=== PATIENT | female | born 1965 | race African-American/Black ===

== ENCOUNTER 2016-06-21 20:51 | Emergency (ER) | payer OTHER ==
[~2016-06-21] VITALS: Ht 167.6 cm; Wt 81.6 kg
[~2016-06-21 20:51] MED LIST: ALBUTEROL SULF8.5 GM INH; AUGMENTIN 875-1 EAC1 ORAL; AZITHROMYCIN250 MG ORAL; BACLOFEN10 MG ORAL; CYCLOBENZAPRINE10 MG ORAL; HYDROCODON-ACE1 EA15 ORAL; IBUPROFEN600 MG ORAL; IBUPROFEN800 MG ORAL; NORCO 5-325 TA1 EACH ORAL; PROMETHAZINE-C118 M1 ORAL; TRAMADOL HCL50 MG ORAL
[2016-06-21] MEDS ORDERED: Dicyclomine HCl 10mg/5ml oral soln ORAL ONE (21:30)
[2016-06-21] MEDS ORDERED: ZOFRAN4 MG ORAL (21:35)
[2016-06-21] MEDS ORDERED: BENTYL10 MG ORAL (21:35)
[2016-06-21 21:37] VITALS: BP 104/67
[2016-06-21 22:45] VITALS: BP 104/67
--- NOTE | 2016-06-22 12:22 | Diagnostic Imaging Report ---
Indication: Dyspnea Comparison: None A single view chest radiograph was obtained. Findings: Cardiomediastinal appearance is within normal limits for age. Pulmonary vascularity is appropriate. The diaphragmatic contour is smooth and costophrenic angles are sharp. No pleural effusions are identified. The bones are unremarkable. Impression: No acute findings
--- NOTE | 2016-06-26 08:13 | Emergency Room Report ---
History of Present Illness General Chief Complaint: Abdominal Pain Source: Patient Present Illness HPI Patient is a 51-year-old female who presented after increased abdominal pain and diarrhea. Patient reported having gradual onset of symptoms. She had prior history of some chronic pain. The patient was noted to have episodes of nausea associated with abdominal cramping. She states that she may been some bad food. Patient is not having any worsening pain with movement. She denied numbness or weakness to her extremities. She had no recent fever. She reported having some watery diarrhea. Allergies: Coded Allergies: No Known Allergies (Unverified , 07/10/14) Patient History Past Medical History: see triage record Reviewed Nursing Documentation: PMH: Agreed, PSxH: Agreed Nursing Documentation-PMH Past Medical History: No Stated History Review of Systems All Other Systems: negative except mentioned in HPI Physical Exam Vital Signs Date Time Temp Pulse Resp B/P Pulse Ox O2 Delivery O2 Flow Rate FiO2 06/21/16 21:12 98.2 65 19 104/67 99 Sp02 EP Interpretation: reviewed, normal General Appearance: normal inspection, well appearing, no apparent distress, alert, GCS 15 Head: atraumatic ENT: normal ENT inspection, hearing grossly normal, normal voice Neck: normal inspection, full range of motion, supple, no bony tend Respiratory: normal inspection, lungs clear, normal breath sounds, no respiratory distress, no retraction, no wheezing Cardiovascular #1: regular rate, rhythm, no edema Gastrointestinal: normal inspection, normal bowel sounds, non tender, soft, no guarding, no hernia Genitourinary: no CVA tenderness Musculoskeletal: normal inspection, back normal, normal range of motion Neurologic: normal inspection, alert, oriented x3, responsive, heat treat worker III-XII nml as tested, speech normal Psychiatric: normal inspection, judgement/insight normal, mood/affect normal Skin: normal inspection, normal color, no rash Medical Decision Making Diagnostic Impression: Primary Impression: Abdominal pain ER Course Patient presented for abdominal pain. Differential diagnoses included ischemic bowel, appendicitis, perforated viscus, abdominal aortic aneurysm, inferior myocardial infarction, viral gastroenteritis Patient's benign exam and does not appear to require any further imaging or laboratory testing at this time The patient was given a GI cocktail and Zofran with improvement.The patient is advised to follow up with primary care doctor in 1-2 days. Patient is advised to return if any worsening condition or if any changes in status that are concerning. Last Vital Signs Date Time Temp Pulse Resp B/P Pulse Ox O2 Delivery O2 Flow Rate FiO2 06/21/16 22:45 98.2 65 19 104/67 99 Status: improved Disposition: HOME, SELF-CARE Condition: Stable Scripts Ondansetron (Zofran) 4 Mg Tablet 4 MG ORAL Q6H Y for Nausea & Vomiting, #30 TAB 0 Refills Prov: Dwayne Coelho 06/21/16 Dicyclomine Hcl* (BENTYL*) 10 Mg Capsule 10 MG ORAL FOUR TIMES A DAY, #20 CAP Prov: Dwayne Coelho 06/21/16 Referrals: [facility] (PCP) Patient Instructions: Abdominal Pain, Adult Dwayne Coelho Jun 26, 2016 08:13
== END 2016-06-21 22:45 | disposition home or self-care (01) ==
LOC: EMR 21:31
DX: R10.9 Unspecified abdominal pain (principal); R19.7 Diarrhea, unspecified
CPT/HCPCS: 71010; 99283

== ENCOUNTER 2016-11-21 02:23 | Emergency (ER) | payer MEDICAID, OTHER ==
[~2016-11-21] VITALS: Ht 167.6 cm; Wt 80.7 kg
[~2016-11-21 02:23] MED LIST changes: +BENTYL10 MG ORAL; +ZOFRAN4 MG ORAL
[2016-11-21 02:35] VITALS: BP 111/68
[2016-11-21] MEDS ORDERED: CLOTRIMAZOLE15 GM TOPIC (02:40)
[2016-11-21 02:45] VITALS: BP 105/68
--- NOTE | 2016-11-23 12:50 | Emergency Room Report ---
History of Present Illness General Chief Complaint: Skin Rash/Abscess Source: Patient Present Illness HPI Patient is a 51-year-old female who presented after increased skin rash. Patient gradual onset of symptoms in the past few days. Patient reported having increased itchiness to her neck as well as the area underneath her breasts. This had gotten worse since the change in the temperature. Patient reports having increased burning sensation in with sweating. She denies using medications and creams this time. She denied any fever. She reports no prior history of lupus. She denies regular alcohol use. Allergies: Coded Allergies: No Known Allergies (Unverified , 07/10/14) Patient History Past Medical History: see triage record Reviewed Nursing Documentation: PMH: Agreed, PSxH: Agreed Nursing Documentation-PMH Past Medical History: No Stated History Review of Systems All Other Systems: negative except mentioned in HPI Physical Exam Vital Signs Date Time Temp Pulse Resp B/P Pulse Ox O2 Delivery O2 Flow Rate FiO2 11/21/16 02:27 97.9 60 18 111/68 98 11/21/16 02:35 Room Air General Appearance: well appearing, no apparent distress, alert, GCS 15 Head: normocephalic, atraumatic ENT: hearing grossly normal, normal voice Neck: full range of motion, supple Respiratory: no respiratory distress, speaking full sentences Cardiovascular #1: normal peripheral pulses, regular rate, rhythm Musculoskeletal: no calf tenderness Neurologic: normal inspection, alert, oriented x3, responsive, director search III-XII nml as tested, motor strength/tone normal, normal gait Psychiatric: mood/affect normal Skin: other - rash below breast and neck Medical Decision Making Diagnostic Impression: Primary Impression: Rash and other nonspecific skin eruption ER Course Patient presented for skin rash. Differential diagnosis included was not limited to Bustamante-Maikel syndrome, urticaria, erythema multiforme, contact dermatitis, fungal infection. Patient's benign exam and does not appear to require any further imaging or laboratory testing at this time. The patient appears to have tinea corporis. Patient was given a prescription for antifungal creams. She is advised followup with her primary care physician within next week. She is advised to return if she began having fever or increased pain or other concerns. Last Vital Signs Date Time Temp Pulse Resp B/P Pulse Ox O2 Delivery O2 Flow Rate FiO2 11/21/16 02:45 97.9 68 17 105/68 100 Room Air Status: improved Disposition: HOME, SELF-CARE Condition: Stable Scripts Clotrimazole* (LOTRIMIN*) 15 Gm Cream..g. 1 APPLIC TOPIC TWICE A DAY for 14 Days, #30 GM Prov: Dwayne Coelho 11/21/16 Referrals: [facility] (PCP) Patient Instructions: Dwayne Smith Nov 23, 2016 12:50
== END 2016-11-21 02:45 | disposition home or self-care (01) ==
LOC: EMR 02:42
DX: R21 Rash and other nonspecific skin eruption (principal)
CPT/HCPCS: 99283

== ENCOUNTER 2017-08-06 19:58 | Emergency (ER) | payer MEDICAID, OTHER ==
[~2017-08-06] VITALS: Ht 167.6 cm; Wt 81.6 kg
[~2017-08-06 19:58] MED LIST changes: +CLOTRIMAZOLE15 GM TOPIC
[2017-08-06 20:36] VITALS: BP 111/69
[2017-08-06] MEDS ORDERED: TESSALON PERLE100 MG ORAL (20:58)
[2017-08-06] MEDS ORDERED: ALBUTEROL SULF8.5 GM INH (20:58)
[2017-08-06 21:02] VITALS: BP 111/69
--- NOTE | 2017-08-06 22:00 | Emergency Room Report ---
History of Present Illness General Chief Complaint: Flu Like Symptoms Source: Patient Present Illness HPI 52-year-old female presents with cough, runny nose for 3 days. Cough is productive with clear phlegm. Pt still eating/drinking well. +sick contacts. No recent travel. No SOB, cp, abdominal pain, n/v/d. Also see patient had change in voice Allergies: Coded Allergies: No Known Allergies (Unverified , 07/10/14) Patient History Past Medical History: see triage record Past Surgical History: none Pertinent Family History: none Now: No Reviewed Nursing Documentation: PMH: Agreed, PSxH: Agreed Nursing Documentation-PMH Past Medical History: No Stated History Review of Systems All Other Systems: negative except mentioned in HPI Physical Exam Vital Signs Date Time Temp Pulse Resp B/P (MAP) Pulse Ox O2 Delivery O2 Flow Rate FiO2 08/06/17 20:18 97.9 67 19 111/69 96 Room Air 97.9 Sp02 EP Interpretation: reviewed, normal General Appearance: alert, GCS 15, non-toxic, mild distress Head: normocephalic, atraumatic Eyes: bilateral eye normal inspection, bilateral eye PERRL, bilateral eye EOMI ENT: normal ENT inspection, normal pharynx, normal voice, moist mucus membranes Neck: normal inspection, full range of motion, supple Respiratory: normal inspection, lungs clear, normal breath sounds, no respiratory distress, no retraction, no wheezing, speaking full sentences, chest symmetrical Cardiovascular #1: normal inspection, regular rate, rhythm, no edema, normal capillary refill Cardiovascular #2: 2+ radial (R), 2+ radial (L) Gastrointestinal: normal inspection, non tender, soft, non-distended, no guarding Musculoskeletal: normal inspection, back normal, normal range of motion, non- tender Neurologic: normal inspection, alert, oriented x3, responsive, motor strength/ tone normal, sensory intact, normal gait, speech normal Psychiatric: normal inspection, judgement/insight normal, memory normal Skin: normal inspection, normal color, no rash, warm/dry, well hydrated, normal turgor Medical Decision Making Diagnostic Impression: Primary Impression: Viral bronchitis ER Course 52-year-old female with cough, runny nose Appears non- toxic, well hydrated, tolerating PO DDX: Viral URI/bronchitis / pneumonia Plan: Chest x-ray ER course: Pt stable in ED, remains nontoxic appearing, no sob. Tolerating PO Disposition: Patient discharged to home with Tessalon Perlvalentina and albuterol Patient instructed to follow up with PMD in 1 week. Also instructed to take motrin/tylenol at home. Very strict return precautions discussed with patient such as intractable fever and chills, unable to eat or drink, severe chest pain or shortness of breath. Patient verbalized understanding and agrees with plan. Please note that this Emergency Department Report was dictated using [employer] technology software, occasionally this can lead to erroneous entry secondary to interpretation by the dictation equipment Chest X-ray CXR: Ordered: Yes 1 view Indication: Cough EP interpretation: Yes Interpretation: No consolidation, no effusion, no PTX, no acute cardiopulmonary disease Impression: No acute disease Electronically signed by Miriam Trinh MD Last Vital Signs Date Time Temp Pulse Resp B/P (MAP) Pulse Ox O2 Delivery O2 Flow Rate FiO2 08/06/17 21:02 97.9 67 19 111/69 96 Room Air 97.9 Disposition: HOME, SELF-CARE Condition: Improved Scripts Albuterol Sulfate* (ALBUTEROL SULFATE MDI*) 8.5 Gm Hfa.aer.ad 2 PUFF INH Q4H Y for cough/wheezing, #1 EA 0 Refills Prov: Miriam Trinh M.D. 08/06/17 Benzonatate* (TESSALON EDENILSON*) 100 Mg Capsule 100 MG ORAL THREE TIMES A DAY for 7 Days, #21 PERLE Prov: Miriam Trinh M.D. 08/06/17 Referrals: [facility] (PCP) Patient Instructions: Upper Respiratory Infection, Adult Miriam Trinh M.D. Aug 06, 2017 21:59
--- NOTE | 2017-08-07 11:25 | Diagnostic Imaging Report ---
Indication: Cough Comparison: June 21, 2016 A single view chest radiograph was obtained. Findings: Cardiomediastinal appearance is within normal limits for age. Pulmonary vascularity is appropriate. The diaphragmatic contour is smooth and costophrenic angles are sharp. No pleural effusions are identified. The bones are unremarkable. Impression: No acute findings
== END 2017-08-06 21:02 | disposition home or self-care (01) ==
LOC: EMR 21:00
DX: J20.8 Acute bronchitis due to other specified organisms (principal); B34.9 Viral infection, unspecified
CPT/HCPCS: 71045; 99284

== ENCOUNTER 2018-03-22 22:11 | Emergency (ER) | payer OTHER ==
[~2018-03-22] VITALS: Ht 167.6 cm; Wt 79.4 kg
[~2018-03-22 22:11] MED LIST changes: +TESSALON PERLE100 MG ORAL
[2018-03-22 23:10] VITALS: BP 115/77
[2018-03-22] MEDS ORDERED: Ketorolac 60mg Inj IM ONE (23:30)
[2018-03-22] MEDS ORDERED: Acetaminophen 500mg (ES) tab ORAL ONE (23:30)
[2018-03-22] MEDS ORDERED: NAPROXEN375 M2 ORAL (23:34)
[2018-03-22 23:50] VITALS: BP 115/75
--- NOTE | 2018-03-23 03:03 | Emergency Room Report ---
History of Present Illness General Chief Complaint: Upper Extremity Injury Source: Patient Present Illness HPI Patient is a 53-year-old female presented after a continued left shoulder pain. Patient reports having fallen off of his scooter approximately 2 weeks prior to arrival. Patient reports having increased pain with movement. The patient was having fallen onto her left side. The patient denies any numbness. She reports having increased pain with range of motion. She denies any fever. Allergies: Coded Allergies: No Known Allergies (Unverified , 07/10/14) Patient History Past Medical History: see triage record Last Menstrual Period: 2007 Now: No : 3 Para: 3 Reviewed Nursing Documentation: PMH: Agreed; PSxH: Agreed Nursing Documentation-PMH Past Medical History: No Stated History Review of Systems All Other Systems: negative except mentioned in HPI Physical Exam Vital Signs Date Time Temp Pulse Resp B/P (MAP) Pulse Ox O2 Delivery O2 Flow Rate FiO2 03/22/18 22:52 98.8 56 16 115/77 97 Room Air 98.8 General Appearance: well appearing, no apparent distress, alert, GCS 15 Head: normocephalic, atraumatic ENT: hearing grossly normal, normal voice Neck: full range of motion, supple Respiratory: no respiratory distress, speaking full sentences Musculoskeletal: normal inspection, decreased range of mation - left shoulder, muscular tenderness to anterior deltoid Neurologic: normal inspection, alert, oriented x3, responsive, normal gait Psychiatric: mood/affect normal Skin: no rash Medical Decision Making Diagnostic Impression: Primary Impression: Muscle contusion Additional Impression: Shoulder pain, left ER Course Patient presented for left shoulder pain. Differential diagnosis included was not limited to fracture, dislocation, sprain, acromioclavicular separation among others.X-ray imaging of the left shoulder 3 views interpreted by me showed normal bony alignment without fracture. The patient was placed in a sling. She is advised follow-up with primary care physician for further evaluation and treatment. Patient was given prescription for pain medication. Last Vital Signs Date Time Temp Pulse Resp B/P (MAP) Pulse Ox O2 Delivery O2 Flow Rate FiO2 03/22/18 23:50 98.0 80 16 115/75 99 Room Air Status: improved Disposition: HOME, SELF-CARE Condition: Improved Scripts Naproxen* (NAPROXEN*) 375 Mg Tablet. 375 MG ORAL TWICE A DAY, #30 TAB Prov: Dwayne Coelho MD 03/22/18 Patient Instructions: Shoulder Pain Dwayne Coelho MD Mar 23, 2018 03:03
--- NOTE | 2018-03-23 10:23 | Diagnostic Imaging Report ---
Indication: left shoulder pain Findings: 3 views of the left shoulder were obtained. Alignment of the left shoulder is normal. No acute fracture is identified. Soft tissues are unremarkable. Impression: No acute injury
--- NOTE | 2018-03-23 10:23 | Diagnostic Imaging Report ---
Indication: Dyspnea Comparison: 08/06/2017 A single view chest radiograph was obtained. Findings: Cardiomediastinal appearance is within normal limits for age. The lungs are clear. Pulmonary vascularity is appropriate. The diaphragmatic contour is smooth and costophrenic angles are sharp. No pleural effusions are identified. The bones are unremarkable. Impression: No acute findings
== END 2018-03-22 23:45 | disposition home or self-care (01) ==
LOC: EMR 23:05
DX: S40.012A Contusion of left shoulder, initial encounter (principal); W05.1XXA Fall from non-moving nonmotorized scooter, initial encounter; Y92.9 Unspecified place or not applicable
CPT/HCPCS: 71045; 96372; 99284

== ENCOUNTER 2019-02-09 18:57 | Emergency (ER) | payer OTHER ==
[~2019-02-09] VITALS: Ht 167.6 cm; Wt 78.9 kg
[~2019-02-09 18:57] MED LIST changes: +NAPROXEN375 M2 ORAL
--- NOTE | 2019-02-09 19:25 | NUR ---
ED Nurse Note: pt walked in c/o left abd area x 5 days and nausea, pt reports she was playing with her grandkids and they stepped on her and heard something "popped". pt denies vomiting nor diarrhea. pt AA&ox4, gcs=15, skin warm and dry, resp even and unlabored on RA, -n/v/d at this time, will cont monitor. safety precautions in place.
[2019-02-09 19:40] VITALS: BP 108/56
[2019-02-09] MEDS ORDERED: Ketorolac 30mg Inj IV ONE ×2 (20:15→22:15)
[2019-02-09] MEDS: Ketorolac 30mg Inj IM ONE ×2 (20:18→20:38)
--- NOTE | 2019-02-09 20:19 | NUR ---
ED Nurse Note: pt refused pain medication pt states she doesn't want injection, ERMD notified.
--- NOTE | 2019-02-09 20:20 | Emergency Room Report ---
History of Present Illness General Chief Complaint: Abdominal Pain Source: Patient Present Illness HPI Disclaimer: Please note that this report is being documented using [employer] technology. This can lead to erroneous entry secondary to incorrect interpretation by the dictating instrument. HPI: 54-year-old otherwise healthy female presents for evaluation of left-sided abdominal pain. Symptoms began 5 days ago when she was roughhousing with her grandchildren stating they were jumping up and down her abdomen where their ages are 7, 5 and 3. She heard a pop on the left side and noted worsening pain in the left upper quadrant that does not radiate. There is associated pain with deep inspiration and bending and twisting motion. She also notes some pain in the mid scapular line on the left side. Denies any cough, denies chest pain, denies nausea, vomiting, diarrhea. Does note some sore throat for the past 2 days but otherwise in her usual state of health without any recent fevers , chills, nasal congestion, dysuria, hematuria. PMH: Denies PSH: Denies Allergies: Denies Social Hx: Occasional THC use. Denies tobacco or alcohol use Allergies: Coded Allergies: No Known Allergies (Unverified , 07/10/14) Patient History Last Menstrual Period: >30 years ago Now: No Nursing Documentation-PMH Past Medical History: No Stated History Review of Systems All Other Systems: negative except mentioned in HPI Physical Exam Vital Signs Date Time Temp Pulse Resp B/P (MAP) Pulse Ox O2 Delivery O2 Flow Rate FiO2 02/09/19 19:04 100.0 81 18 99/68 (78) 96 Room Air General: Awake and alert, no acute distress HEENT: NC/AT. EOMI. uvula is midline. Tonsils are 2+. There is mild pharyngeal edema and erythema on the right tonsil with mild exudate. Neck: Supple, trachea midline, no crepitus Chest Wall: There is tenderness palpation in the left mid axillary and mid scapular line over the lower ribs without obvious deformity. No crepitus. Cardiovascular: RRR. S1 and S2 normal. No murmur appreciated Resp: Breath sounds are equal bilaterally. Normal work of breathing. No cough, wheezing or crackles appreciated Abdomen: Abdomen is soft, nondistended. Nontender. No mass appreciated. Normal bowel sounds Skin: Intact. No abrasions, laceration or rash over the exposed skin MSK: Normal tone and bulk. Moving all extremities. No obvious deformity. Neuro: Awake and alert. Mentating appropriately. Back/Spine: No midline tenderness in the cervical, thoracic or lumbosacral spine. Medical Decision Making ER Course Is a 54-year-old female presenting for evaluation of 5 days left-sided pain after roughhousing with her grandchildren. Differential includes but is not limited to pneumothorax, pneumonia, rib fracture, muscular skeletal pain, muscle spasm, pancreatitis, gastritis, viral syndrome, nephrolithiasis, diverticulitis. Of these, rib fracture is the most likely given her pinpoint pain in the lower ribs in the midaxillary line and the history. Will obtain a rib series and treat the patient with Toradol. Can advance work-up as needed based on initial imaging findings. Laboratory Tests Test 02/09/19 21:27 White Blood Count 12.0 K/UL (4.8-10.8) H Red Blood Count 5.94 M/UL (4.20-5.40) H Hemoglobin 13.6 G/DL (12.0-16.0) Hematocrit 42.4 % (37.0-47.0) Mean Corpuscular Volume 71 FL (80-99) L Mean Corpuscular Hemoglobin 22.9 PG (27.0-31.0) L Mean Corpuscular Hemoglobin Concent 32.1 G/DL (32.0-36.0) Red Cell Distribution Width 11.8 % (11.6-14.8) Platelet Count 175 K/UL (150-450) Mean Platelet Volume 9.0 FL (6.5-10.1) Neutrophils (%) (Auto) 78.5 % (45.0-75.0) H Lymphocytes (%) (Auto) 13.6 % (20.0-45.0) L Monocytes (%) (Auto) 6.8 % (1.0-10.0) Eosinophils (%) (Auto) 0.3 % (0.0-3.0) Basophils (%) (Auto) 0.8 % (0.0-2.0) Sodium Level 140 MMOL/L (136-145) Potassium Level 4.2 MMOL/L (3.5-5.1) Chloride Level 107 MMOL/L (98-107) Carbon Dioxide Level 28 MMOL/L (21-32) Anion Gap 5 mmol/L (5-15) Blood Urea Nitrogen 10 mg/dL (7-18) Creatinine 0.9 MG/DL (0.55-1.30) Estimate Glomerular Filtration Rate > 60 mL/min (>60) Glucose Level 89 MG/DL (74-106) Calcium Level 9.7 MG/DL (8.5-10.1) Total Bilirubin 0.7 MG/DL (0.2-1.0) Aspartate Amino Transferase (AST) 15 U/L (15-37) Alanine Aminotransferase (ALT) 20 U/L (12-78) Alkaline Phosphatase 77 U/L (46-116) Total Protein 7.5 G/DL (6.4-8.2) Albumin 3.8 G/DL (3.4-5.0) Globulin 3.7 g/dL Albumin/Globulin Ratio 1.0 (1.0-2.7) Lipase 152 U/L (73-393) Chest X-Ray Diagnostic Results Chest X-Ray Diagnostic Results : # of Views/Limited/Complete: Complete Indication: Chest Pain EP Interpretation: Yes Interpretation: no consolidation, no effusion, no pneumothorax, no acute cardiopulmonary disease Impression: No acute disease Electronically Signed by: Electronically signed by Dr. Nahun Miles Last Vital Signs Date Time Temp Pulse Resp B/P (MAP) Pulse Ox O2 Delivery O2 Flow Rate FiO2 02/09/19 19:04 100.0 81 18 99/68 (78) 96 Room Air Status: improved Reevaluation Impression Blood work is returned largely within normal limits. LFTs, lipase are unremarkable. Chest x-ray does not show any obvious rib fracture. There may be a subtle nondisplaced fracture patient will be discharged home with pain medication for comfort. She also be started on amoxicillin for suspected pharyngitis. She was given Decadron in the emergency department. She was also given Toradol with improvement in her symptoms. She will be discharged home on 10 days of antibiotics to treat a pharyngitis and follow-up with her PMD. I discussed reasons to return to the emergency department with her including but not limited to worsening chest pain, difficulty breathing, infectious symptoms such as fever, cough, difficulty tolerating secretions, worsening throat pain. She understands and agrees with this treatment plan will be discharged home. Disposition: HOME, SELF-CARE Condition: Improved Scripts Amoxicillin* (AMOXIL*) 500 Mg Capsule 500 MG ORAL BID for 10 Days, #20 CAP Prov: Nahun Miles MD 02/09/19 Acetaminophen* (TYLENOL EXTRA STRENGTH*) 500 Mg Tablet 500 MG ORAL Q6HR PRN for Prn Headache/Temp > 101, #30 TAB 0 Refills Prov: Nahun Miles MD 02/09/19 Ibuprofen* (MOTRIN*) 600 Mg Tablet 600 MG ORAL Q6H PRN for For Pain, #30 TAB 0 Refills Prov: Nahun Miles MD 02/09/19 Nahun Miles MD Feb 09, 2019 20:20
--- NOTE | 2019-02-09 21:00 | NUR ---
ED Nurse Note: pt reports sorethroat, no swelling nor exudates noted, noted mild redness, ermd notified.
--- NOTE | 2019-02-09 21:04 | Diagnostic Imaging Report ---
EXAM: XR Left Ribs, 3 Views CLINICAL HISTORY: PAIN TECHNIQUE: 3 views of the left ribs. COMPARISON: No relevant prior studies available. FINDINGS: Lungs: No consolidation. Pleural space: Unremarkable. No pneumothorax. Bones/joints: No displaced rib fracture. IMPRESSION: No displaced rib fracture.
[2019-02-09] MEDS ORDERED: Dexamethasone 4mg/ml vial IVP ONE (21:15)
--- NOTE | 2019-02-09 21:15 | NUR ---
ED Nurse Note: verified w/ ermd regarding decadron order, no ivp, order changed to po.
[2019-02-09 21:39] LABS: BASOPHILS % (AUTO) 0.8 % (0.0-2.0); EOSINOPHILS % (AUTO) 0.3 % (0.0-3.0); HEMATOCRIT 42.4 % (37.0-47.0); HEMOGLOBIN 13.6 G/DL (12.0-16.0); LYMPHOCYTES % (AUTO) 13.6 % (20.0-45.0); MEAN CORPUSCULAR VOLUME 71 FL (80-99); MONOCYTES % (AUTO) 6.8 % (1.0-10.0); NEUTROPHILS % (AUTO) 78.5 % (45.0-75.0); PLATELET COUNT 175 K/UL (150-450); RED BLOOD COUNT 5.94 M/UL (4.20-5.40); RED CELL DISTRIBUTION WIDTH 11.8 % (11.6-14.8)
[2019-02-09] MEDS ORDERED: Dexamethasone Elixir 0.25mg/2.5ml ORAL ONE (21:45)
[2019-02-09 21:46] LABS: ANION GAP 5 mmol/L (5-15); BLOOD UREA NITROGEN 10 mg/dL (7-18); CALCIUM 9.7 MG/DL (8.5-10.1); CARBON DIOXIDE 28 MMOL/L (21-32); CHLORIDE 107 MMOL/L (98-107); CREATININE 0.9 MG/DL (0.55-1.30); POTASSIUM 4.2 MMOL/L (3.5-5.1); SODIUM 140 MMOL/L (136-145)
[2019-02-09 21:56] LABS: ALANINE AMINOTRANSFERASE 20 U/L (12-78); ALBUMIN 3.8 G/DL (3.4-5.0); ALKALINE PHOSPHATASE 77 U/L (46-116); ASPARTATE AMINO TRANSFERASE 15 U/L (15-37); BILIRUBIN,TOTAL 0.7 MG/DL (0.2-1.0)
[2019-02-09] MEDS ORDERED: AMOXICILLIN500 MG ORAL (22:23)
[2019-02-09] MEDS ORDERED: IBUPROFEN600 MG ORAL (22:23)
[2019-02-09] MEDS ORDERED: TYLENOL EXTRA500 MG ORAL (22:23)
[2019-02-09 22:30] VITALS: BP 110/86
--- NOTE | 2019-02-09 22:30 | NUR ---
ED Nurse Note: pt cleared to be d/c per ermd, pt discharge and aftercare instruction provided w/ prescription, pt education done via discussion and handout, pt advised to follow up with pcp or return to ed if changes in condition, vss, ambulatory w/steady gait, iv d/c and id band removed, accompanied by family left w/ all belongings, pt verbalized understanding.
== END 2019-02-09 22:30 | disposition home or self-care (01) ==
LOC: EMR 19:43
DX: R10.9 Unspecified abdominal pain (principal); R07.9 Chest pain, unspecified; J02.9 Acute pharyngitis, unspecified
CPT/HCPCS: 36415; 71101; 80053; 83690; 85025; 96374; 96375; 96376; 99284; J1885; J8540

== ENCOUNTER 2019-04-11 19:38 | Emergency (ER) | payer OTHER ==
[~2019-04-11] VITALS: Ht 167.6 cm; Wt 78.9 kg
[~2019-04-11 19:38] MED LIST changes: +AMOXICILLIN500 MG ORAL; +TYLENOL EXTRA500 MG ORAL
--- NOTE | 2019-04-11 19:59 | NUR ---
ED Nurse Note: Pt ambulated to ED from home c/o 03/29 headache and R flank pain since this afternoon after falling, Denies hitting head, VSS. PT is A&Ox4
[2019-04-11 20:00] VITALS: BP 123/81
[2019-04-11] MEDS ORDERED: Tylenol #3 tab (300mg/30mg) ORAL ONE (20:15)
[2019-04-11] MEDS ORDERED: LIDODERM700 M1 TOPIC (21:02)
[2019-04-11] MEDS ORDERED: IBUPROFEN600 MG ORAL (21:02)
[2019-04-11 21:10] VITALS: BP 123/81
--- NOTE | 2019-04-11 21:10 | NUR ---
ER DISCHARGE NOTE: Patient is cleared to be discharged per ERMD, pt is aox4, on room air, with stable vital signs. pt was given dc and prescription instructions, pt was able to verbalize understanding, pt id band removed. pt is able to ambulate with steady gait. pt took all belongings.
--- NOTE | 2019-04-12 12:03 | Diagnostic Imaging Report ---
Indication: Chest pain Technique: One view of the chest, 2 views of the left ribs Comparison: Chest compared to 03/22/2018 Findings: Lungs and pleural spaces are clear. The heart size is normal. Rib radiographs are unremarkable, no fracture demonstrated. Impression: Negative
--- NOTE | 2019-04-16 11:41 | Emergency Room Report ---
History of Present Illness General Chief Complaint: Multiple Trauma/Fall Source: Patient Present Illness HPI 54 yo F presents to ED c/o L rib pain. states that yesterday she tripped and fell while emptying the trashcans. landed on her L ribs. denies hitting her head or LOC. c/o L rib pain. 10/10 sharp nonradiating. worse with deep breaths. denies any other injuries. no other aggravating or relieving factors. denies any other associated symptoms. Allergies: Coded Allergies: No Known Allergies (Unverified , 07/10/14) Patient History Past Medical History: none Past Surgical History: none Pertinent Family History: none Social History: Denies: smoking, alcohol use, drug use Now: No Immunizations: UTD Reviewed Nursing Documentation: PMH: Agreed; PSxH: Agreed Nursing Documentation-PMH Past Medical History: No Stated History Review of Systems All Other Systems: negative except mentioned in HPI Physical Exam Sp02 EP Interpretation: reviewed, normal General Appearance: no apparent distress, alert, GCS 15, non-toxic Head: normocephalic, atraumatic Eyes: bilateral eye normal inspection, bilateral eye PERRL ENT: hearing grossly normal, normal pharynx, no angioedema, normal voice Neck: full range of motion, supple/symm/no masses Respiratory: lungs clear, normal breath sounds, speaking full sentences, other - L posterior rib TTP Cardiovascular #1: regular rate, rhythm, no edema Cardiovascular #2: 2+ carotid (R), 2+ carotid (L), 2+ radial (R), 2+ radial (L) , 2+ dorsalis pedis (R), 2+ dorsalis pedis (L) Gastrointestinal: normal bowel sounds, non tender, soft, non-distended, no guarding, no rebound Rectal: deferred Genitourinary: normal inspection, no CVA tenderness Musculoskeletal: back normal, gait/station normal, normal range of motion, non- tender Neurologic: alert, oriented x3, responsive, motor strength/tone normal, sensory intact, speech normal Psychiatric: judgement/insight normal, memory normal, mood/affect normal, no suicidal/homicidal ideation Reflexes: 3+ bicep (R), 3+ bicep (L), 3+ tricep (R), 3+ tricep (L), 3+ knee (R) , 3+ knee (L) Lymphatic: no adenopathy Medical Decision Making Diagnostic Impression: Primary Impression: Rib contusion Qualified Codes: S20.212A - Contusion of left front wall of thorax, initial encounter ER Course Hospital Course 54 yo F presents to ED c/o L rib pain s/p fall Differential Diagnosis include: PTX, fracture, dislocation Clinical Course: Patient placed on stretcher in ED. after initial history and physical, I ordered pain medications and CXR and L rib series Xrays show no evidence of rib fx or PTX. discussed findings with patient. likely contusion. we will discharge to home. safe for discharge with close outpatient followup. states he has a PMD Diagnosis - rib contusion Patient stable and discharged to home with Rx Motrin. weight bear as tolerated. Patient instructed to followup with their PMD. Instructed to return to ED if symptoms recur/worsen. Chest X-Ray Diagnostic Results Chest X-Ray Diagnostic Results : Chest X-Ray Ordered: Yes # of Views/Limited/Complete: 1 View Indication: Chest Pain EP Interpretation: Yes Interpretation: no consolidation, no effusion, no pneumothorax Impression: No acute disease Electronically Signed by: electronically signed by Alexis Flores MD Other X-Ray Diagnostic Results Other X-Ray Diagnostic Results : X-Ray ordered: L ribs # of Views/Limited Vs Complete: 3 View Indication: Pain EP Interpretation: Yes Interpretation: no dislocation, no soft tissue swelling, no fractures Impression: No acute disease Electronically Signed by: electronically signed by Alexis Flores MD Status: improved Disposition: HOME, SELF-CARE Condition: Stable Scripts Lidocaine Patch* (Lidoderm Patch*) 1 Each Adh..patch 1 PATCH TOPIC DAILY, #7 PATCH 0 Refills Patch(es) may remain in place for up to 12 hours in any 24-hour period. Prov: Alexis Flores MD 04/11/19 Ibuprofen* (MOTRIN*) 600 Mg Tablet 600 MG ORAL Q8H PRN for For Pain, #30 TAB 0 Refills Prov: Alexis Flores MD 04/11/19 Referrals: [facility],REFERRING (PCP) Patient Instructions: Rib Contusion Alexis Flores MD Apr 16, 2019 11:41
== END 2019-04-11 21:10 | disposition home or self-care (01) ==
LOC: EMR 20:14
DX: S20.212A Contusion of left front wall of thorax, initial encounter (principal); W01.0XXA Fall on same level from slipping, tripping and stumbling without subsequent striking against object, initial encounter; Y92.9 Unspecified place or not applicable; R07.9 Chest pain, unspecified
CPT/HCPCS: 99283

== ENCOUNTER 2019-05-23 21:19 | Emergency (ER) | payer OTHER ==
[~2019-05-23] VITALS: Ht 167.6 cm; Wt 78.5 kg
[~2019-05-23 21:19] MED LIST changes: +LIDODERM700 M1 TOPIC
[2019-05-23 21:38] VITALS: BP 102/70
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
[2019-05-23] MEDS ORDERED: Albuterol/Ipratropium 3ml neb HHN ONE (22:00)
[2019-05-23] MEDS ORDERED: Ketorolac 60mg Inj IM ONE (22:00)
[2019-05-23] MEDS ORDERED: ROBAXIN-750750 MG PO (22:24)
[2019-05-23] MEDS ORDERED: IBUPROFEN600 MG ORAL (22:24)
[2019-05-23] MEDS ORDERED: Methocarbamol 500mg tab ORAL ONE (22:30)
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
[2019-05-23] MEDS ORDERED: ALBUTEROL SULF8.5 GM INH (23:33)
[2019-05-23 23:38] VITALS: BP 108/76
--- NOTE | 2019-05-24 17:19 | Diagnostic Imaging Report ---
Indication: Shortness of breath Technique: One view of the chest Comparison: 03/22/2020 Findings: Lungs and pleural spaces are clear. Heart size is normal. No significant interim change Impression: No acute process
== END 2019-05-23 23:38 | disposition home or self-care (01) ==
LOC: EMR 21:40
DX: M54.2 Cervicalgia (principal); M54.6 Pain in thoracic spine; V43.52XA Car driver injured in collision with other type car in traffic accident, initial encounter; Y92.410 Unspecified street and highway as the place of occurrence of the external cause; F12.90 Cannabis use, unspecified, uncomplicated
CPT/HCPCS: 71045; 72125; 72128; 94640; 94664; 99284; J7620

== ENCOUNTER 2020-01-11 21:51 | Emergency (ER) | payer MEDICAID, OTHER ==
[~2020-01-11] VITALS: Ht 167.6 cm; Wt 79.4 kg
[~2020-01-11 21:51] MED LIST changes: +ROBAXIN-750750 MG PO
[2020-01-11 22:00] VITALS: BP 127/75
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
[2020-01-11] MEDS ORDERED: HYDROcodone/Acetamin 5/325 tab ORAL ONE (22:15)
--- NOTE | 2020-01-11 22:15 | NUR ---
ED Nurse Note: XR AT BEDSIDE
[2020-01-11] MEDS ORDERED: IBUPROFEN600 M1 ORAL (22:28)
[2020-01-11] MEDS ORDERED: HYDROCODON-ACE1 EA15 ORAL (22:28)
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
[2020-01-11 22:30] VITALS: BP_SYST 116; BP_SYST 127; BP_DIAS 75; BP_DIAS 81
--- NOTE | 2020-01-11 22:30 | NUR ---
ER DISCHARGE NOTE: Patient is cleared to be discharged per ERMD, pt is aox4, on room air, with stable vital signs. pt was given dc and prescription instructions, pt was able to verbalize understanding, pt id band removed without complications. pt is able to ambulate with steady gait. pt took all belongings.
--- NOTE | 2020-01-11 22:33 | Diagnostic Imaging Report ---
EXAM: XR Chest, 1 View CLINICAL HISTORY: CP TECHNIQUE: Frontal view of the chest. COMPARISON: None FINDINGS: Lungs: Unremarkable. No consolidation. Pleural space: Unremarkable. No pneumothorax. Heart: Unremarkable. No cardiomegaly. Mediastinum: Unremarkable. Bones/joints: Unremarkable. IMPRESSION: No acute cardiopulmonary process.
== END 2020-01-11 22:30 | disposition home or self-care (01) ==
LOC: EMR 22:15
DX: S20.219A Contusion of unspecified front wall of thorax, initial encounter (principal); V43.52XA Car driver injured in collision with other type car in traffic accident, initial encounter; Y92.411 Interstate highway as the place of occurrence of the external cause
CPT/HCPCS: 71045; Z7502; 99283

== ENCOUNTER 2020-01-19 01:53 | Emergency (ER) | payer MEDICAID ==
[~2020-01-19] VITALS: Ht 167.6 cm; Wt 78.5 kg
[~2020-01-19 01:53] MED LIST changes: +IBUPROFEN600 M1 ORAL
[2020-01-19 02:07] VITALS: BP 100/57
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
--- NOTE | 2020-01-19 02:11 | NUR ---
ED Nurse Note: ERMD at bedside
[2020-01-19] MEDS ORDERED: Ketorolac 60mg Inj IM ONE (02:15)
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
[2020-01-19] MEDS ORDERED: CARISOPRODOL350 MG ORAL (02:18)
[2020-01-19] MEDS ORDERED: PERCOCET 5-3251 EACH ORAL (02:18)
--- NOTE | 2020-01-19 02:21 | NUR ---
ED Nurse Note: all medications administered, pt tolerated well no ss of distress noted. will continue to monitor.
[2020-01-19 02:24] VITALS: BP 112/62
--- NOTE | 2020-01-19 02:24 | NUR ---
ER DISCHARGE NOTE: Patient is cleared to be discharged home per ERMD, pt is aox4, 100% on room air, with stable vital signs. pt was given dc and prescription instructions, pt was able to verbalize understanding, pt id band removed. pt is able to ambulate with steady gait. pt took all belongings.
[2020-01-19] MEDS ORDERED: HYDROcodone/Acetamin 5/325 tab ORAL ONE (02:30)
== END 2020-01-19 02:30 | disposition home or self-care (01) ==
LOC: EMR 02:28
DX: S20.212A Contusion of left front wall of thorax, initial encounter (principal); V49.9XXA Car occupant (driver) (passenger) injured in unspecified traffic accident, initial encounter; Y92.9 Unspecified place or not applicable; F17.200 Nicotine dependence, unspecified, uncomplicated
CPT/HCPCS: 96372; Z7502; 99283

== ENCOUNTER 2020-01-28 16:51 | Emergency (ER) | payer MEDICAID ==
[~2020-01-28] VITALS: Ht 167.6 cm; Wt 78.5 kg
[~2020-01-28 16:51] MED LIST changes: +CARISOPRODOL350 MG ORAL; +PERCOCET 5-3251 EACH ORAL
[2020-01-28 17:15] VITALS: BP 109/76
[2020-01-28] MEDS ORDERED: Acetaminophen 500mg (ES) tab ORAL ONE (17:15)
[2020-01-28] MEDS ORDERED: Methocarbamol 750mg tab ORAL ONE (17:15)
[2020-01-28] MEDS ORDERED: NARCAN4 MG NS (18:53)
[2020-01-28] MEDS ORDERED: NORCO 5-325 TA1 EAC1 ORAL (18:53)
[2020-01-28] MEDS ORDERED: NAPROXEN500 M1 ORAL (18:53)
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
[2020-01-28 18:58] VITALS: BP 109/76
--- NOTE | 2020-01-29 15:19 | Diagnostic Imaging Report ---
Indication: Chest pain Technique: One view of the chest Comparison: 01/11/2020 Findings: Lungs and pleural spaces are clear. Heart size is normal. No significant change Impression: No acute process
== END 2020-01-28 18:59 | disposition home or self-care (01) ==
LOC: EMR 17:15
DX: T14.8XXA Other injury of unspecified body region, initial encounter (principal); M25.512 Pain in left shoulder; V49.9XXA Car occupant (driver) (passenger) injured in unspecified traffic accident, initial encounter; Y92.9 Unspecified place or not applicable; G89.29 Other chronic pain
CPT/HCPCS: 71045; Z7502; 99283

== ENCOUNTER 2020-05-23 12:13 | Emergency (ER) | payer MEDICAID ==
[~2020-05-23] VITALS: Ht 167.6 cm; Wt 77.6 kg
[~2020-05-23 12:13] MED LIST changes: +NAPROXEN500 M1 ORAL; +NARCAN4 MG NS; +NORCO 5-325 TA1 EAC1 ORAL
[2020-05-23 12:45] VITALS: BP 115/82
--- NOTE | 2020-05-23 12:46 | NUR ---
ED Nurse Note:pt. c/o left ear clogginess for 5 days, seen by ER
[2020-05-23] MEDS ORDERED: DEBROX15 M1 LEFT EAR (12:49)
[2020-05-23] MEDS ORDERED: AMOXICILLIN500 MG ORAL (12:49)
[2020-05-23 12:50] VITALS: BP 115/82
--- NOTE | 2020-05-23 12:50 | NUR ---
ED Nurse Note: Pt cleared by health care Provider for discharge. DC instructions/prescription was given and explained to pt and verbalized understanding of teachings. All medical deviecs such as ID band removed. Pt is AAO x4, ambulatory and left with all personal belongings.
--- NOTE | 2020-05-26 14:59 | Emergency Room Report ---
History of Present Illness General Chief Complaint: Earache Source: Patient Present Illness HPI 55-year-old female presents to ED for evaluation. States she has been having left ear pain for the last 2 days. Dull, 3 out of 10, nonradiating. States her ear feels full and there is fluid. Denies any fevers or chills. Denies cough. Denies sick contacts or recent travel. No other aggravating relieving factors. Denies any other associated symptoms Allergies: Coded Allergies: No Known Allergies (Unverified , 07/10/14) COVID-19 Screening Contact w/high risk pt: No Experienced COVID-19 symptoms?: No COVID-19 Testing performed TRIMMER CLIMBER: No Patient History Past Medical History: none Past Surgical History: none Pertinent Family History: none Social History: Denies: smoking, alcohol use, drug use Now: No Immunizations: UTD Reviewed Nursing Documentation: PMH: Agreed; PSxH: Agreed Nursing Documentation-PMH Past Medical History: No Stated History Review of Systems All Other Systems: negative except mentioned in HPI Physical Exam Vital Signs Date Time Temp Pulse Resp B/P (MAP) Pulse Ox O2 Delivery O2 Flow Rate FiO2 05/23/20 12:20 97.0 62 16 115/82 (93) 99 Room Air Sp02 EP Interpretation: reviewed, normal General Appearance: no apparent distress, alert, GCS 15, non-toxic Head: normocephalic, atraumatic Eyes: bilateral eye normal inspection, bilateral eye PERRL ENT: hearing grossly normal, normal pharynx, no angioedema, normal voice, other - L TM poor light reflex. some wax noted Neck: full range of motion, supple/symm/no masses Respiratory: chest non-tender, lungs clear, normal breath sounds, speaking full sentences Cardiovascular #1: regular rate, rhythm, no edema Cardiovascular #2: 2+ carotid (R), 2+ carotid (L), 2+ radial (R), 2+ radial (L), 2+ dorsalis pedis (R), 2+ dorsalis pedis (L) Gastrointestinal: normal bowel sounds, non tender, soft, non-distended, no guarding, no rebound Rectal: deferred Genitourinary: normal inspection, no CVA tenderness Musculoskeletal: back normal, normal range of motion, gait/station normal, non- tender Neurologic: alert, motor strength/tone normal, oriented x3, sensory intact, responsive, speech normal Psychiatric: judgement/insight normal, memory normal, mood/affect normal, no suicidal/homicidal ideation Reflexes: 3+ bicep (R), 3+ bicep (L), 3+ tricep (R), 3+ tricep (L), 3+ knee (R), 3+ knee (L) Skin: no rash Lymphatic: no adenopathy Medical Decision Making Diagnostic Impression: Primary Impression: Otitis media Qualified Codes: H66.90 - Otitis media, unspecified, unspecified ear ER Course Hospital Course 55 yo F presents to ED c/o L ear pain Differential diagnoses include: TM perforation, otitis externa, otitis media Clinical course Patient placed on stretcher. After initial history, physical exam reveals a female in no acute distress. L TM poor light reflex. remainder of exam unremarkable Diagnosis - otitis media Stable and discharged to home with Rx Carbamide peroxide, amoxicillin. Followup with PMD. Return to ED if symptoms recur or worsen Last Vital Signs Date Time Temp Pulse Resp B/P (MAP) Pulse Ox O2 Delivery O2 Flow Rate FiO2 05/23/20 12:50 97.0 16 115/82 99 Room Air 05/23/20 12:20 62 Status: improved Disposition: HOME, SELF-CARE Condition: Stable Scripts Carbamide Peroxide (DEBROX) 15 Ml Drops 5 DROP LEFT EAR TWICE A DAY for 4 Days, ML 0 Refills Prov: Alexis Flores MD 05/23/20 Amoxicillin* (AMOXIL*) 500 Mg Capsule 500 MG ORAL THREE TIMES A DAY, #21 CAP Prov: Alexis Flores MD 05/23/20 Referrals: [facility],REFERRING (PCP) Patient Instructions: Otitis Media, Adult Alexis Flores MD May 26, 2020 14:59
== END 2020-05-23 12:50 | disposition home or self-care (01) ==
LOC: EMR 12:45
DX: H66.90 Otitis media, unspecified, unspecified ear (principal)
CPT/HCPCS: 99282